=== PATIENT | male | born 1940 | race Caucasian/White ===

== ENCOUNTER → 2020-08-26 13:19 | Outpatient (ROUT) | payer MEDICARE, SELFPAY ==
[2020-08-26 13:34] LABS: Hematocrit 45.1 % (41-53); Hemoglobin 15.1 g/dL (13.5-17.5); Mean Corpuscular HGB Conc 33.6 % (30-36); Mean Corpuscular Hemoglobin 31.8 PG (26-34); Mean Corpuscular Volume 94.7 fL (80-100); Platelet Count 165 X10^3/uL (150-400); Red Blood Cell Count 4.76 X10^6/uL (4.5-5.9); Red Cell Distribution Width 12.7 % (11.6-14.8)
[2020-08-26 13:44] LABS: BUN Creatinine Ratio 22.2 (6-22); Blood Urea Nitrogen 18 mg/dL (9-20); Calcium 9.4 mg/dL (8.4-10.2); Carbon Dioxide 32 mmol/L (22-32); Chloride 104 mmol/L (98-107); Estimated Glomerular Filt Rate > 60.0 mL/min (>60); Glucose 96 mg/dL (80-110); HEMOLYSIS < 15 (0-50); Potassium 4.4 mmol/L (3.4-5.1); Sodium 139 mmol/L (137-145)
[2020-08-26 14:12] LABS: Prostate Specific Antigen 5.66 ng/mL (0.10-4.00)
== END ==
PROVIDERS: PCP Internal Medicine; Visit Provider Internal Medicine
DX: M77.11 Lateral epicondylitis, right elbow (principal); D63.8 Anemia in other chronic diseases classified elsewhere; I10 Essential (primary) hypertension; R97.20 Elevated prostate specific antigen [PSA]
CPT/HCPCS: 80048; 84153; 85027

== ENCOUNTER → 2020-09-10 19:06 | Outpatient (ROUT) | payer MEDICARE, SELFPAY ==
[2020-09-10 19:37] LABS: Alanine Aminotransferase 36 IU/L (<50); Albumin 4.1 g/dL (3.5-5.0); Albumin Globulin Ratio 1.8 (1.0-2.8); Alkaline Phosphatase 87 U/L (38-126); Aspartate Aminotransferase 38 IU/L (17-59); BUN Creatinine Ratio 22.1 (6-22); Bilirubin Total 0.7 mg/dL (0.2-1.3); Blood Urea Nitrogen 19 mg/dL (9-20); Calcium 9.4 mg/dL (8.4-10.2); Carbon Dioxide 28 mmol/L (22-32); Chloride 103 mmol/L (98-107); Cholesterol 149 mg/dL (140-199); Estimated Glomerular Filt Rate > 60.0 mL/min (>60); Globulin 2.3 g/dL (1.7-4.1); Glucose 81 mg/dL (80-110); HDL Cholesterol 58 mg/dL (40-60); HEMOLYSIS 22 (0-50); LDL Cholesterol Calculated 63 mg/dL (<100); Potassium 3.9 mmol/L (3.4-5.1); Sodium 138 mmol/L (137-145); Total Protein 6.4 g/dL (6.3-8.2); Triglycerides 141 mg/dL (35-150)
[2020-09-10 19:46] LABS: NT-proBNP (BNP-Adult 18+) 53 pg/mL (<450)
[2020-09-10 20:05] LABS: TSH w/ Reflex to FT4 2.44 uIU/mL (0.47-4.68)
[2020-09-10 20:26] LABS: Vitamin B12 863 pg/mL (239-931)
[2020-09-14 11:36] LABS: Intrinsic Factor Blocking Aby 1.3 AU/mL (0.0-1.1)
== END ==
PROVIDERS: PCP Internal Medicine; Visit Provider Internal Medicine
DX: R06.00 Dyspnea, unspecified (principal); E53.8 Deficiency of other specified B group vitamins; R01.1 Cardiac murmur, unspecified
CPT/HCPCS: 80053; 80061; 82607; 83880; 84443; 86340

== ENCOUNTER → 2020-09-16 10:12 | Outpatient (CLI) | payer MEDICARE, SELFPAY ==
--- NOTE | 2020-09-16 | DI.CT.S_ITS ---
PROCEDURE: CT ABDOMEN PELVIS W CON INDICATIONS: Left lower quadrant abdominal swelling, mass and l TECHNIQUE: After the administration of oral and intravenous contrast, 5 mm thick sections acquired from the diaphragms to the symphysis. 5 mm thick coronal and sagittal reformats were performed. For radiation dose reduction, the following was used: automated exposure control, adjustment of mA and/or kV according to patient size. COMPARISON: None. FINDINGS: Image quality: Excellent. ABDOMEN: Lung bases: Lung bases are clear. Heart size is mildly enlarged. Solid organs: Liver is normal in size and enhancement. A 9 mm low-density lesion in the right hepatic lobe at the dome is most likely a benign cyst. Gallbladder is surgically absent. Biliary system is non-dilated. Pancreas enhances normally. Spleen is normal in size and enhancement. No adrenal nodules. Kidneys are normal in size and enhancement, without hydronephrosis. Peritoneum and bowel: Small hiatal hernia. Multiple diverticula are seen in the colon without signs of acute diverticulitis. Normal appendix. No signs of bowel obstruction. Nodes and vessels: Aorta and inferior vena cava are normal in caliber. Moderate atherosclerotic calcifications are seen in the aorta. There is a andrea appearance of the small bowel mesentery with mildly prominent mesenteric lymph nodes along the superior mesenteric artery measuring up to 9 mm in short axis diameter. Miscellaneous: Small fat containing umbilical hernias are seen in the upper abdomen at the midline. PELVIS: Genitourinary: The prostate is enlarged. There is diffuse bladder wall thickening. A small diverticulum is seen at the anterior right aspect of the bladder. Miscellaneous: No inguinal hernias or adenopathy. Bones: No suspicious bony lesions. No vertebral body compression fractures. Multilevel degenerative changes are seen in the spine. IMPRESSION: 1. No acute abnormality is identified in the abdomen or pelvis. 2. Colonic diverticulosis without signs of acute diverticulitis. 3. Andrea appearance of the small bowel mesentery with mild prominence of the mesenteric lymph nodes is nonspecific and may be reactive versus related to mesenteric panniculitis or other etiologies. 4. Prostatomegaly with diffuse bladder wall thickening and trabeculation. 5. Small hiatal hernia. Dictated by: Ian Murphy M.D. on 09/16/2020 at 11:36 Approved by: Ian Murphy M.D. on 09/16/2020 at 11:49
== END ==
PROVIDERS: PCP Internal Medicine; Referring Provider Internal Medicine; Visit Provider Internal Medicine
DX: R19.04 Left lower quadrant abdominal swelling, mass and lump (principal); K76.9 Liver disease, unspecified; K57.90 Diverticulosis of intestine, part unspecified, without perforation or abscess without bleeding; K44.9 Diaphragmatic hernia without obstruction or gangrene; K42.9 Umbilical hernia without obstruction or gangrene; N32.89 Other specified disorders of bladder; N40.0 Benign prostatic hyperplasia without lower urinary tract symptoms; Z90.49 Acquired absence of other specified parts of digestive tract
CPT/HCPCS: 74177

== ENCOUNTER → 2020-09-24 15:25 | Outpatient (ROUT) | payer MEDICARE, SELFPAY ==
[2020-09-24 15:27] LABS: Bacteria Urine None Seen; RBC Urine None Seen (0-5/HPF); WBC Urine None Seen (0-5/HPF)
[2020-09-24 16:00] LABS: Appearance Urine UA CLEAR; Bilirubin Urine UA NEGATIVE (NEGATIVE); Color Urine UA YELLOW; Glucose Urine UA NEGATIVE (Negative); Ketones Urine UA NEGATIVE (NEGATIVE); Leukocyte Esterase Urine UA NEGATIVE (NEGATIVE); Nitrite Urine UA NEGATIVE (Negative); Occult Blood Urine UA NEGATIVE (Negative); Protein Urine UA NEGATIVE (Negative); Urobilinogen Urine UA 0.2 E.U./dL (0.2)
[2020-09-24 16:09] LABS: Urine Comments Microscopic Normal
== END ==
PROVIDERS: PCP Internal Medicine; Visit Provider Internal Medicine
DX: K57.92 Diverticulitis of intestine, part unspecified, without perforation or abscess without bleeding (principal)
CPT/HCPCS: 81001; 87086

== ENCOUNTER → 2020-10-06 15:57 | Outpatient (CLI) | payer MEDICARE, SELFPAY ==
--- NOTE | 2020-10-06 | DI.ECHO.S_ITS ---
[facility]---------+ [facility] +---------+ : : [address] : : : : [id number] : : : : Phone: [phone] Echocardiogram Report + + :Name: TENISHA INIGUEZ Study Date: 10/06/2020 Height: 69.5 in: :[facility] Weight: 190 lb : : Gender: Male BSA: 2.0 m2 : :: 1940 Age: 80 yrs BP: 156/88 mmHg: :Reason For Study: MURMUR : :Ordering Physician: BREANNE BRICE : :L Performed By: Ros Sauceda : :Referring: BREANNE BRICE : + + Interpretation Summary Left ventricular systolic function is normal with an estimated ejection fraction of 55 to 60% without focal wall motion abnormalities. Diastolic function is likely normal with probable normal filling pressures. The right ventricle appears normal. Right ventricular systolic pressure cannot be estimated but CVP is likely around 3 mmHg. The left atrium is mildly enlarged. The aortic valve is mildly calcified but opens well without evidence for aortic stenosis. There is no significant functional valvular abnormality. The ascending aorta is mildly enlarged. Procedure: A two-dimensional transthoracic echocardiogram with color flow and Doppler was performed. The study quality was technically adequate. There is no prior echocardiogram noted for this patient. The patient was in sinus bradycardia with heart rates between 55-66 bpm during the exam. Left Ventricle: The left ventricle appears normal in size, wall thickness, and systolic function without any focal wall motion abnormalities. The ejection fraction is estimated to be 55-60%. Diastolic parameters suggest probable normal left ventricular diastolic function and normal filling pressures. Right Ventricle: The right ventricle is normal in size and function. Atria: The left atrium is mildly dilated. Right atrial size is normal. There is no Doppler evidence for an interatrial shunt. Mitral Valve: The mitral valve is normal in structure and function. There is trace mitral regurgitation. Aortic Valve: The aortic valve is trileaflet. There is mild aortic valve sclerosis. The aortic valve is mildly calcified. The aortic valve opens well. There is no aortic valve stenosis. No aortic regurgitation is present. Tricuspid Valve: The tricuspid valve is normal in structure and function. There is trace tricuspid regurgitation. Pulmonary artery pressures cannot be estimated because of the lack of a measurable TR jet velocity but the IVC suggests a CVP of around 3 mmHg. Pulmonic Valve: The pulmonic valve is not well visualized. There is no pulmonic valvular regurgitation. There is no significant valvular heart disease. Great Vessels: The aortic root is normal size. The ascending aorta is mildly enlarged. The IVC is of normal diameter and collapses greater than 50% with a sniff. This suggests a low right atrial pressure of 3 mm Hg. Pericardium/ Pleura There is no pericardial effusion. There is no pleural effusion. MMode/2D Measurements & Calculations LVIDd: 5.4 cm LVOT diam: 2.1 cm LVIDs: 3.5 cm Ao root diam: 3.6 cm FS: 34.4 % asc Aorta Diam: 3.8 cm EPSS: 0.34 cm IVSd: 0.62 cm LVPWd: 0.76 cm LV swanson. diameter/BSA (cm/m^2): 2.7 LV sys. diameter/BSA (cm/m^2): 1.7 LA A2 area: 24.3 cm2 RA long axis: 4.9 cm LA A4 area: 23.1 cm2 RA area: 18.1 cm2 LA length (vol): 6.1 cm RA vol: 56.9 ml LA vol: 77.5 ml RA : 28.0 ml/m2 LA vol index: 38.1 ml/m2 IVC diam: 1.2 cm RVD1 (basal): 4.2 cm TAPSE: 2.4 cm Doppler Measurements & Calculations Ao V2 max: 186.1 cm/sec LVOT Max Mikael: 120.7 cm/sec Ao V2 mean: 127.3 cm/sec LV V1 max P.8 mmHg Ao max P.9 mmHg LV V1 VTI: 26.0 cm Ao mean P.3 mmHg JOSE ANGEL(I,D): 2.1 cm2 Ao V2 VTI: 44.6 cm JOSE ANGEL(V,D): 2.3 cm2 sev ratio: 0.58 JOSE ANGEL indexed to BSA (cm^2/m^2): 1.0 MV E max mikael: 86.6 cm/sec PA V2 max: 63.7 cm/sec MV A max mikael: 78.7 cm/sec PA V2 mean: 40.9 cm/sec MV E/A: 1.1 PA mean P.80 mmHg Med Peak E' Mikael: 8.4 cm/sec PA pr(Accel): 41.3 mmHg E/E' med: 10.3 Lat Peak E' Mikael: 9.8 cm/sec E/E' lat: 8.9 E/e' average: 9.6 MV dec time: 0.21 sec SVLVOT): 91.9 ml Reading Physician:05:39 PM
== END ==
PROVIDERS: PCP Internal Medicine; Referring Provider Internal Medicine; Visit Provider Internal Medicine
DX: R01.1 Cardiac murmur, unspecified (principal); I77.89 Other specified disorders of arteries and arterioles; R06.00 Dyspnea, unspecified
CPT/HCPCS: 93306

== ENCOUNTER → 2020-11-11 11:03 | Outpatient (CLI) | payer MEDICARE, SELFPAY ==
--- NOTE | 2020-11-11 | DI.US.S_ITS ---
PROCEDURE: US RENAL COMPLETE INDICATIONS: Recent CT scan demonstrated increased bladder trabeculation and a thickened, irregular bladder wall. Status post empiric antibiotics. Please evaluate genitourinary tract with ultrasound. Diverticulitis of intestine, part unspecified, wit TECHNIQUE: Real-time scanning was performed of the kidneys and bladder, with image documentation. COMPARISON: [facility], CT, CT ABDOMEN PELVIS W CON, 09/16/2020, 10:58. FINDINGS: Kidneys: Kidneys are normal in size. Right kidney measures 12.1 cm long; left kidney measures 11.5 cm long. Right renal cortical thickness is 1.6 cm; left renal cortical thickness is 1.6 cm. Renal cortical echotexture is normal. No hydronephrosis or nephrolithiasis. No suspicious solid mass lesions. Bladder: Pre-void bladder volume is 236 mL. Post-void residual is 87 mL. Pre-void images demonstrate no intraluminal masses or stones. No abnormal vascularity can be seen of the bladder wall. On pre-void images, both ureteral jets are noted with color Doppler interrogation. (Of note, ureteral jets may not be detectable in up to 25% of cases due to insufficient differences in specific gravity between ureteral and bladder urine). Miscellaneous: No free pelvic fluid. The prostate is enlarged, measuring 6.1 x 5.6 x 4.6 cm. IMPRESSION: Unremarkable bladder wall by ultrasound. Moderate postvoid residual, 87 cc. Enlarged prostate. Dictated by: Martin De Jesus M.D. on 11/11/2020 at 11:41 Approved by: Martin De Jesus M.D. on 11/11/2020 at 11:43
== END ==
PROVIDERS: PCP Internal Medicine; Referring Provider Internal Medicine; Visit Provider Internal Medicine
DX: K57.92 Diverticulitis of intestine, part unspecified, without perforation or abscess without bleeding (principal); N40.0 Benign prostatic hyperplasia without lower urinary tract symptoms
CPT/HCPCS: 76770

== ENCOUNTER → 2021-01-07 15:47 | Outpatient (ROUT) | payer OTHER, SELFPAY ==
[2021-01-07 16:56] LABS: Vitamin B12 266 pg/mL (239-931)
== END ==
PROVIDERS: PCP Internal Medicine; Visit Provider Internal Medicine
DX: D51.9 Vitamin B12 deficiency anemia, unspecified (principal); M1A.40X0 Other secondary chronic gout, unspecified site, without tophus (tophi)
CPT/HCPCS: 82607; 84550

== ENCOUNTER 2021-01-24 23:59 | Observation (INO) | payer OTHER, SELFPAY ==
[2021-01-25] VITALS (9 sets, daily range): BP systolic 118–166; BP diastolic 62–82; PULSE 56–80; RESP 15–20; TEMP 36.6–37.6; O2SAT 94–98; BMI 27.2
--- NOTE | 2021-01-25 | DI.RAD.S_ITS ---
PROCEDURE: XR GASTROGRAFIN CHALLENGE COMPARISON: None. INDICATIONS: SMALL BOWEL OBSTRUCTION FINDINGS: Dilated loops of small bowel noted in the right upper quadrant. Contrast material is identified in the colon. IMPRESSION: Dilated small-bowel loops in the right upper quadrant compatible small bowel obstruction. Contrast material identified in the colon indicating small bowel obstruction is partial. Dictated by: Emely Mckeon MD, PhD on 01/25/2021 at 14:32 Approved by: Emely Mckeon MD, PhD on 01/25/2021 at 14:33
--- NOTE | 2021-01-25 00:17 | ED.ABDPAIN ---
HPI - Abdominal Pain General Chief Complaint: Abdominal Pain Stated Complaint: severe abdominal pain/kidney pain Time Seen by Provider: 01/25/21 00:02 Source: patient Mode of arrival: Ambulatory Limitations: no limitations History of Present Illness HPI narrative: 81-year-old male nonsmoker with history of hypertension, hyperlipidemia and GERD presents with his in the chief complaint of a sudden onset mid epigastric pain that started about 5 hours ago. He states he is nauseated but denies any vomiting and pain is intense, 7/10. He states the pain is worse with motion and improves with rest. He denies any radiation of his pain. He is passing gas but denies any abnormal bowel movements. He denies any dysuria, frequency or urgency. He has had no fever or chills. He denies any exposure to persons known or under suspicion for COVID. MD complaint: abdominal pain Onset (ago): hour(s) Pain Consistency: constant Location: periumbilical Severity: severe Quality: cramping and aching Radiation: none Relieving factors: rest Exacerbating factors: movement Associated symptoms: nausea Related Data Home Medications Medication Instructions Recorded Confirmed amlodipine [Norvasc] #0 08/23/17 atorvastatin [Lipitor] #0 08/23/17 lisinopril #0 08/23/17 omeprazole #0 08/23/17 Review of Systems Constitutional Constitutional: Denies chills, Denies fatigue, Denies fever(s), Denies frequent falls, Denies lethargy and Denies weakness Eyes Eyes: Denies change in vision, Denies eye discharge, Denies irritation and Denies loss of vision ENT Ears, Nose, Mouth, and Throat: Denies change in voice, Denies dizziness, Denies neck pain, Denies sore throat and Denies throat swelling Cardiovascular Cardiovascular: Denies chest pain, Denies irregular heart rhythm, Denies lightheadedness, Denies palpitations, Denies dyspnea, Denies dyspnea on exertion and Denies orthopnea Respiratory Respiratory: Denies cough, Denies dyspnea, Denies dyspnea on exertion and Denies wheezing Gastrointestinal Gastrointestinal: Reports abdominal pain, Denies change in bowel habits, Denies diarrhea, Reports nausea and Denies vomiting Musculoskeletal Musculoskeletal: Denies neck pain and Denies numbness Integumentary/Breasts Skin/Breast: Denies pruritus, Denies erythema, Denies rash and Denies wounds Neurologic Neurologic: Denies behavioral changes, Denies confusion, Denies dizziness, Denies frequent falls, Denies loss of vision, Denies numbness and Denies weakness Psychiatric Psychiatric: Denies anxiety, Denies behavioral changes, Denies confusion, Denies depression, Denies homicidal ideation and Denies suicidal ideation Endocrine Endocrine: Denies fatigue, Denies flushing and Denies palpitations Hematologic/Lymphatic Hematologic/Lymphatic: Denies easy bruising Allergic/Immunologic Allergic/Immunologic: Denies urticaria, Denies throat swelling and Denies wheezing Patient History Smoking Status: Former smoker alcohol intake frequency: 0-2 drinks per day Substance Use Type: does not use Exam Narrative Exam Narrative: GENERAL: [81] year old patient appears stated age. Well-nourished, well-developed patient, in mild distress. HEAD: Atraumatic. Normocephalic. EYES: Pupils equal round and reactive. Extraocular motions intact. No scleral icterus. No injection or drainage. ENT: Nose without bleeding, purulent drainage. Throat without erythema, tonsillar hypertrophy or exudate. Airway patent. NECK: Trachea midline. Non tender CARDIOVASCULAR: Regular rate and rhythm without murmurs, gallops, or rubs. RESPIRATORY: Clear to auscultation. Breath sounds equal bilaterally. No wheezes, rales, or rhonchi. GASTROINTESTINAL: Abdomen soft, central abdominal pain, nondistended. Decreased bowel sounds EXTREMITIES: No edema or joint tenderness. BACK: Nontender without deformity or crepitance. No flank tenderness. NEURO: AOx3. SKIN: No rash or erythema of visible areas Initial Vital Signs Initial Vital Signs: Vital Signs Temperature 99.1 F 01/25/21 00:05 Pulse Rate 58 L 01/25/21 00:05 Respiratory Rate 20 01/25/21 00:05 Blood Pressure 166/78 H 01/25/21 00:05 Pulse Oximetry 98 01/25/21 00:05 Course Orders Ordered: ED Orders 01/25/21 00:15 Complete Blood Count AUTO DIFF Stat Comprehensive Metabolic Panel Stat Lipase Stat 01/25/21 00:18 CT abdomen pelvis w con Stat Acetaminophen (Acetaminophen 325 Mg Tablet) 650 mg PO Q6HR PRN PRN Reason: Pain, Mild (1-3) Heparin Sodium (Porcine) (Heparin 5,000 Unit/Ml Vial) 5,000 unit SUBCUT BID YANI Sodium Chloride (Normal Saline 0.9%) 1,000 mls @ 150 mls/hr IV CONT YANI Last Admin: 01/25/21 00:42 Dose: 150 mls/hr Documented by: GUADALUPE Morphine Sulfate (Morphine 2 Mg/Ml Inj) 2 mg IV Q4HR PRN PRN Reason: Pain, Moderate (4-6) Naloxone HCl (Naloxone 0.4 Mg/Ml Vial) 0.2 mg IV Q2MIN PRN PRN Reason: Opiate Reversal Ondansetron HCl (Ondansetron 4 Mg/2 Ml Inj) 4 mg IV Q4HR PRN PRN Reason: Nausea And Vomiting Oxycodone HCl (Oxycodone Ir 5 Mg Tablet) 5 mg PO Q6HR PRN PRN Reason: Pain, Moderate (4-6) Pantoprazole Sodium (Pantoprazole 40 Mg Vial) 40 mg IV DAILY YANI Discontinued Medications Hydromorphone HCl (Hydromorphone 0.5 Mg Inj) 0.5 mg IV NOW ONE Stop: 01/25/21 00:58 Last Admin: 01/25/21 01:01 Dose: 0.5 mg Documented by: PHAM Ondansetron HCl (Ondansetron 4 Mg/2 Ml Inj) 4 mg IV NOW ONE Stop: 01/25/21 00:18 Last Admin: 01/25/21 00:43 Dose: 4 mg Documented by: GUADALUPE Pantoprazole Sodium (Pantoprazole 40 Mg Vial) 40 mg IV NOW ONE Stop: 01/25/21 00:18 Last Admin: 01/25/21 00:43 Dose: 40 mg Documented by: GUADALUPE Consultations Consultation #1: Discussed with on-call surgery, Dr. Patterson, she is happy to accept the patient on her service and will write orders Vital Signs Vital signs: Vital Signs - 8 hr 01/25/21 00:05 Temperature 99.1 F Pulse Rate 58 L Respiratory Rate 20 Blood Pressure 166/78 H Pulse Oximetry 98 MDM - Abdominal Pain Lab Data Result diagrams: 01/25/21 00:15 01/25/21 00:15 Labs: Lab Results 01/25/21 01/25/21 Range/Units 00:15 00:15 WBC 6.3 (4.5-11.0) X10^3/uL RBC 4.73 (4.5-5.9) X10^6/uL Hgb 15.5 (13.5-17.5) g/dL Hct 44.0 (41-53) % MCV 93.2 (80-100) fL MCH 32.8 (26-34) PG MCHC 35.2 (30-36) % RDW 13.4 (11.6-14.8) % Plt Count 191 (150-400) X10^3/uL Neut % (Auto) 73.3 (50-75) % Lymph % (Auto) 15.6 L (25-40) % Bleckley % (Auto) 8.6 (3-14) % Eos % (Auto) 1.8 L (2-4) % Baso % (Auto) 0.7 (0-2) % Neut # (Auto) 4600 (1212-5604) /uL Lymph # (Auto) 1000 L (6272-6673) /uL Bleckley # (Auto) 500 (0-900) /uL Eos # (Auto) 100 (0-450) /uL Baso # (Auto) 0 (0-100) /uL Sodium 138 (137-145) mmol/L Potassium 3.7 (3.4-5.1) mmol/L Chloride 102 (98-107) mmol/L Carbon Dioxide 28 (22-32) mmol/L BUN 17 (9-20) mg/dL Creatinine 0.80 (0.66-1.25) mg/dL Estimated GFR > 60.0 (>60) mL/min BUN/Creatinine Ratio 21.3 (6-22) Glucose 105 (80-110) mg/dL Calcium 9.8 (8.4-10.2) mg/dL Total Bilirubin 1.0 (0.2-1.3) mg/dL AST 38 (17-59) IU/L ALT 32 (<50) IU/L Alkaline Phosphatase 90 (38-126) U/L Total Protein 7.0 (6.3-8.2) g/dL Albumin 4.4 (3.5-5.0) g/dL Globulin 2.6 (1.7-4.1) g/dL Albumin/Globulin Ratio 1.7 (1.0-2.8) Lipase 45 (23-300) U/L Imaging Data CT scan - abdomen/pelvis: Radiologist's Impression: Small-bowel obstruction with transition point in the mid abdomen Discharge Plan Departure Patient Disposition: Admitted as Observation Clinical Impression: Partial small bowel obstruction Admit Date/Time: 01/25/21 02:09 Admit Provider: Rhonda Patterson
--- NOTE | 2021-01-25 00:18 | DI.CT.S_ITS ---
PROCEDURE: CT ABDOMEN PELVIS W CON INDICATIONS: severe abdominal pain TECHNIQUE: After the administration of intravenous contrast, 5 mm thick sections acquired from the diaphragm to the symphysis. 5 mm coronal and sagittal reformats were acquired. For radiation dose reduction, the following was used: automated exposure control, adjustment of mA and/or kV according to patient size. COMPARISON: [facility], CT, CT ABDOMEN PELVIS W CON, 09/16/2020, 10:58. FINDINGS: Image quality: Excellent. ABDOMEN: Lung bases: Lung bases are clear. Heart size is normal. Solid organs: Liver is normal in size. Low attenuation hepatic foci are unchanged. Gallbladder has been removed. Biliary system is non dilated. Pancreas enhances normally. Spleen is normal in size and enhancement. No adrenal nodules. Kidneys demonstrate normal size and enhancement, without hydronephrosis. Peritoneum and bowel: Diverticula are present without inflammatory change. Bowel loops demonstrate dilated appearance of fluid filled small bowel in the mid/left hemiabdomen. Transition point is likely in the mid left abdomen. No free fluid or air. There is mild stranding in the mid abdominal mesentery with scattered subentimeter lymph nodes. Nodes and vessels: No retroperitoneal or mesenteric adenopathy by size criteria. Aorta and inferior vena cava are normal in size. Miscellaneous: No ventral hernias. PELVIS: Genitourinary: Bladder wall thickness is normal. Prostate is enlarged. Miscellaneous: Bilateral fat containing inguinal hernias. Bones: No suspicious bony lesions. No vertebral body compression fractures. IMPRESSION: 1. Dilated fluid filled loops of small bowel consistent with partial small bowel obstruction. 2. Mesenteric stranding with subcentimeter lymph nodes, relatively unchanged. This could be related to low level inflammation. Other etiologies including lymphoma cannot be excluded. 3-6 month interval followup. The above findings are concordant with preliminary report. Dictated by: Peg Esquivel M.D. on 01/25/2021 at 10:49 Approved by: Peg Esquivel M.D. on 01/25/2021 at 11:31
[2021-01-25 00:30] LABS: Add Manual Diff / Slide Review NO; Basophils Absolute Auto 0 /uL (0-100); Basophils Percent Auto 0.7 % (0-2); Eosinophils Absolute Auto 100 /uL (0-450); Eosinophils Percent Auto 1.8 % (2-4); Hemoglobin 15.5 g/dL (13.5-17.5); Lymphocytes Absolute Auto 1000 /uL (1100-4500); Lymphocytes Percent Auto 15.6 % (25-40); Mean Corpuscular HGB Conc 35.2 % (30-36); Mean Corpuscular Hemoglobin 32.8 PG (26-34); Mean Corpuscular Volume 93.2 fL (80-100); Monocytes Absolute Auto 500 /uL (0-900); Monocytes Percent Auto 8.6 % (3-14); Neutrophils Absolute Auto 4600 /uL (1500-7000); Neutrophils Percent Auto 73.3 % (50-75); Platelet Count 191 X10^3/uL (150-400); Red Blood Cell Count 4.73 X10^6/uL (4.5-5.9); Red Cell Distribution Width 13.4 % (11.6-14.8); White Blood Cell Count 6.3 X10^3/uL (4.5-11.0)
[2021-01-25 00:35] LABS: Alanine Aminotransferase 32 IU/L (<50); Albumin 4.4 g/dL (3.5-5.0); Albumin Globulin Ratio 1.7 (1.0-2.8); Alkaline Phosphatase 90 U/L (38-126); Aspartate Aminotransferase 38 IU/L (17-59); BUN Creatinine Ratio 21.3 (6-22); Blood Urea Nitrogen 17 mg/dL (9-20); Calcium 9.8 mg/dL (8.4-10.2); Carbon Dioxide 28 mmol/L (22-32); Chloride 102 mmol/L (98-107); Estimated Glomerular Filt Rate > 60.0 mL/min (>60); Globulin 2.6 g/dL (1.7-4.1); Glucose 105 mg/dL (80-110); HEMOLYSIS 23 (0-50); Lipase 45 U/L (23-300); Potassium 3.7 mmol/L (3.4-5.1); Sodium 138 mmol/L (137-145)
[2021-01-25] MEDS: SODIUM CHLORIDE 0.9% 1,000 ML 150 ML IV ×3 (00:42→18:53)
[2021-01-25] MEDS: PANTOPRAZOLE 40 MG VIAL IV ×2 (00:43→09:24)
[2021-01-25] MEDS: ONDANSETRON 4 MG/2 ML INJ IV ×2 (00:43→06:03)
[2021-01-25] MEDS: HYDROMORPHONE 0.5 MG INJ IV ×2 (01:01→02:59)
[2021-01-25 03:35] LABS: COVID19 - ADMIT (NP swab/PCR) Negative (Negative)
[2021-01-25] MEDS: MORPHINE 2 MG/ML INJ IV ×3 (03:46→10:42)
--- NOTE | 2021-01-25 04:25 | PC.ADMIT ---
[email or web address] Admission Note: The patient,Vivek Tian,81 y/o, was given written information regarding hospital policies, unit procedures and contact persons. Pt arrived on unit stable in good disposition with no apparent cardiovascular or respiratory distress. Able to ambulate from gurney to bed with no difficulty and did not need assistance. Pt AOx4, +CSM all four extremities. Able to make needs known. Pt reports cramping throbbing pain in abdomen that increases on palpation and is worse in LUQ. Hyperactive bowel sounds. Pt reports not passing gas at time of assessment and last BM 01/23/2021. Pt reports pain 04/14, given 2 mg morphine w/ successful reduction in pain. Pt has two lumps above umbilicus that are either a hernia or fatty tumor per pt report. 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 Pt does not know which one is which. Pt skin shows mild abrasions on legs from scratching. When asked, pt reported a bug infestation on his legs that he got from digging in the dirt approx 1 year ago. When pressed for more information, pt unable to tell this RN what kind of bug it was (denied scabies, chiggers, fleas, bedbugs; shows no characteristics typical to the aforementioned bites at time of assessment), only that it has been treated for the past year with creams and still itches but shows no signs of spreading either to other areas of body or other individuals. Pt unaware of current medications, and will bring list in AM. Patient's smoking status: Former smoker. Vital Signs - 8 hr 01/25/21 00:05 01/25/21 02:31 01/25/21 03:02 Temperature 99.1 F 98.4 F Pulse Rate 58 L 72 56 L Respiratory Rate 20 16 15 Blood Pressure 166/78 H 140/82 153/71 H Pulse Oximetry 98 95 97
[2021-01-25 06:48] LABS: BUN Creatinine Ratio 19.2 (6-22); Blood Urea Nitrogen 14 mg/dL (9-20); Carbon Dioxide 26 mmol/L (22-32); Chloride 103 mmol/L (98-107); Estimated Glomerular Filt Rate > 60.0 mL/min (>60); Glucose 122 mg/dL (80-110); HEMOLYSIS < 15 (0-50); Magnesium 1.9 mg/dL (1.6-2.3); Phosphorous 3.7 mg/dL (2.3-3.7); Potassium 3.9 mmol/L (3.4-5.1); Sodium 136 mmol/L (137-145)
--- NOTE | 2021-01-25 07:39 | PM.HP.1 ---
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 Based on outside hospital reports, this was an EGD and biopsy/duodenal polypectomy. He came into the ER during the night with c/o sudden onset mid epigastric pain that started about 5 hours prior. He says the pain was almost as bad as when his gall bladder became gangrenous several years ago. In the ER he c/o nausea and pain, but did not vomit. CT scan in the ER was c/w early SBO. This morning he was feeling better somewhat, in terms of pain. He reports he is passing flatus. He still feels very distended. ROS: He denies any dysuria, frequency or urgency. He denies fever or chills. He denies any exposure to persons known or under suspicion for COVID. Thirteen system review is otherwise negative other than as mentioned below and in HPI. GENERAL: Alert, oriented, mild distress due to abdominal discomfort. Appears stated age. Answers questions promptly and appropriately. Vital signs noted. HENT: Normocephalic, atraumatic. Hearing intact. EYES: Conjunctiva pink, sclera white, no periorbital swelling. CARDIOVASCULAR: Regular rate. No pedal edema. RESPIRATORY: Non-tachypneic, breathing comfortably on room air. GASTROINTESTINAL: Abdomen soft , distended, mild generalized tenderness palpation, well-healed upper midline incisional scar GENITALURINARY: No flank tenderness. MUSCULOSKELETAL: Equal tone and mass bilaterally. SKIN: Warm, dry, soft, appropriate color for ethnicity. No other lesions, rashes, or wounds. NEURO: Alert and Oriented X 3. No gross sensory deficits, or cognitive issues. PSYCH: Appropriate affect and mood. Patient History Family & Social History Social History: household members spouse Prior Living Arrangements House Safety & Behavioral: Feels Safe in Current Yes Environment Been Physically Hurt or No Threatened By a Person Suicidal Ideation Description None Suicide Plan Description No Plan Tobacco & Substance use: Smoking Status Former smoker alcohol intake current alcohol intake frequency 0-2 drinks per day Substance Use Type marijuana Meds Home Medications and Allergies Home Medications Medication Instructions Recorded Confirmed Type amlodipine [Norvasc] 10 mg PO DAILY #0 08/23/17 01/25/21 History atorvastatin [Lipitor] 20 mg PO DAILY #0 08/23/17 01/25/21 History lisinopril 20 mg PO DAILY #0 08/23/17 01/25/21 History omeprazole 20 mg PO DAILY #0 08/23/17 01/25/21 History Allergies Allergy/AdvReac Type Severity Reaction Status Date / Time No Known Drug Allergies Allergy Verified 01/25/21 03:40 Exam Vital Signs (past 8 hours): - 01/25/21 00:05 01/25/21 02:31 01/25/21 03:02 Temperature 99.1 F 98.4 F Pulse Rate 58 L 72 56 L Respiratory Rate 20 16 15 Blood Pressure 166/78 H 140/82 153/71 H Pulse Oximetry 98 95 97 01/25/21 05:00 01/25/21 06:05 Temperature 98.1 F Pulse Rate 62 Respiratory Rate 16 Blood Pressure 143/76 H Pulse Oximetry 96 95 Oxygen Delivery Method Room Air Oxygen Flow Rate [address] scan - abdomen: Radiologist's impression: Prelim read: early SBO, andrea mesentery (nonspecific) Labs Result Diagrams: 01/25/21 00:15 01/25/21 06:00 Labs: Laboratory Results - last 24 hr 01/25/21 01/25/21 01/25/21 00:15 00:15 02:35 WBC 6.3 RBC 4.73 Hgb 15.5 Hct 44.0 MCV 93.2 MCH 32.8 MCHC 35.2 RDW 13.4 Plt Count 191 Neut % (Auto) 73.3 Lymph % (Auto) 15.6 L [place] % (Auto) 8.6 Eos % (Auto) 1.8 L Baso % (Auto) 0.7 Neut # (Auto) 4600 Lymph # (Auto) 1000 L [place] # (Auto) 500 Eos # (Auto) 100 Baso # (Auto) 0 Sodium 138 Potassium 3.7 Chloride 102 Carbon Dioxide 28 BUN 17 Creatinine 0.80 Estimated GFR > 60.0 BUN/Creatinine Ratio 21.3 Glucose 105 Calcium 9.8 Phosphorus Magnesium Total Bilirubin 1.0 AST 38 ALT 32 Alkaline Phosphatase 90 Total Protein 7.0 Albumin 4.4 Globulin 2.6 Albumin/Globulin Ratio 1.7 Lipase 45 SARS-CoV-2 (PCR) Negative 01/25/21 06:00 WBC RBC Hgb Hct MCV MCH MCHC RDW Plt Count Neut % (Auto) Lymph % (Auto) [place] % (Auto) Eos % (Auto) Baso % (Auto) Neut # (Auto) Lymph # (Auto) [place] # (Auto) Eos # (Auto) Baso # (Auto) Sodium 136 L Potassium 3.9 Chloride 103 Carbon Dioxide 26 BUN 14 Creatinine 0.73 Estimated GFR > 60.0 BUN/Creatinine Ratio 19.2 Glucose 122 H Calcium 9.0 Phosphorus 3.7 Magnesium 1.9 Total Bilirubin AST ALT Alkaline Phosphatase Total Protein Albumin Globulin Albumin/Globulin Ratio Lipase SARS-CoV-2 (PCR) Assessment & Plan Assessment and plan (1) Partial small bowel obstruction: Status: Acute (2) GERD (gastroesophageal reflux disease): Status: Acute (3) Barretts esophagus: Status: Acute (4) History of abdominal surgery: Status: Acute Assessment & Plan narrative: This is a 81 yo man with history of abdominal surgery. He is not quite sure what surgery he had other than cholecystectomy. He felt that he had had a surgery for his gastric outlet, but based on the notes it appears that he only had an endoscopic polypectomy. His upper midline incision may be from his cholecystectomy. Based on his CT scan, and symptoms he has an early PSBO. Plan: IV fluid Home meds Protonix Clear liquid Gastrografin Small-bowel follow-through Pain med Antiemetic Ambulate COVID-19 COVID-19 status: Negative Result date/Date tested (Pos, Neg/Pending): 01/25/21 Time Spent With Patient Time with patient: Greater than 35 minutes Quality VTE Deep Vein Thrombosis/Pulmonary Embolism Present on Admission: No MIPS - Admit Advanced Care Plan / Current Medications Measures: #47 ? Advanced Care Plan Clinician documentation instruction: document at admission. [] I confirmed that the patient's Advance Care Plan is present, code status is documented, or surrogate decision maker is listed in the patient?s medical record. [SATISFIES [facility] PERFORMANCE] If Yes, Stop Here [] The patient?s Advance Care plan is not present because: (select) [[facility] PERFORMANCE EXCEPTION/EXCLUSION] [] I confirmed today that the patient does not wish or was not able to name a surrogate decision maker or provide an Advance Care Plan. [] Hospice care is currently being provided or has been provided this calendar year [] I did NOT confirm today the presence of an Advance Care Plan or surrogate decision maker documented within the patient's medical record. [DOES NOT SATISFY MIPS PERFORMANCE] #130 - Documentation of Current Medications in the Medical Record Clinician documentation instruction: use macro the first time you see a patient. [] I have utilized all available immediate resources to obtain, update, or review the patient?s current medications. [SATISFIES MIPS PERFORMANCE] If Yes, Stop Here [] The patient is not eligible for medication reconciliation; the patient is in an emergent medical situation where delaying treatment would jeopardize the patient?s health. [MIPS PERFORMANCE EXCEPTION/EXCLUSION] [] I did NOT confirm, update or review the patient's current list of medications today. [DOES NOT SATISFY MIPS PERFORMANCE] MIPS - CL Central Venous Catheter Placement Measure: #76 ? Prevention of Central Venous Catheter (CVC) ? Related Bloodstream Infection Clinician documentation instruction: use macro every time you place a central line. [] All elements of Maximal Sterile Barrier Technique, including hand hygiene, skin prep, and sterile ultrasound technique (if used) were followed. [SATISFIES MIPS PERFORMANCE] If Yes, Stop Here [] If ?No?, the medical reason all elements were NOT used for medical reason [] (ex. emergent condition). [] Maximal Sterile Barrier Technique was not followed, no reason provided [DOES NOT SATISFY MIPS PERFORMANCE] MIPS - DC Heart Failure Measures: #5 - Heart Failure (HF): Angiotensin-Converting Enzyme (DIAMOND) Inhibitor or Angiotensin Receptor Maribel (ARB) Therapy for Left Ventricular Systolic Dysfunction (LVSD) and #8 - Heart Failure (HF): Beta-Maribel Therapy for Left Ventricular Systolic Dysfunction (LVSD) Clinician documentation instruction: use macro at every CHF discharge. [] The patient has current or prior documentation of left ventricular ejection fraction (LVEF) less than 40%, or moderate or severely depressed left ventricular systolic function. Answer both: [SATISFIES MIPS PERFORMANCE] [] The patient was prescribed or already taking an Angiotensin-Converting Enzyme (DIAMOND) Inhibitor, or Angiotensin Receptor Maribel (ARB). [] The patient was prescribed or already taking a beta-maribel. If Yes to Both, Stop Here [] Patient not prescribed/taking: [MIPS PERFORMANCE EXCEPTION/EXCLUSION] [] DIAMOND or ARB for medical/patient/system reason(s) including [] (ex. allergy, intolerance, contraindication) [] Beta-maribel for medical/patient/system reason(s) including [] (ex. allergy, intolerance, contraindication) [] Patient not prescribed/taking: [DOES NOT SATISFY MIPS PERFORMANCE] [] DIAMOND or ARB, no reason given [] Beta-maribel, no reason given
[2021-01-25] MEDS: HEPARIN 5,000 UNIT/ML VIAL 5000 UNIT SUBCUT ×2 (09:24→21:33)
[2021-01-25] MEDS: SODIUM CHLORIDE 0.9% FLUSH 10 ML IV (10:42)
--- NOTE | 2021-01-25 13:21 | PC.NURSE ---
Day shift: Pt reports (at 1320) I'm feeling good and better. No pain right now. Pt also denies any nausea. Has water to drink and encouraged to drink/eat slowly and to report to RN if nausea or emesis return. Spouse in room. Call light in reach. Pt makes needs known proper. Uses urinal w/ good output. IV infusing per MAR.
--- NOTE | 2021-01-25 16:16 | CM.DANOTE ---
DCP ASSESSMENT: Patient is a pleasant 81 year-old male has a history of prior abdominal surgery a cholecystectomy and admitted for severe abdominal pain/kidney pain, with suspected early partial small bowel obstruction. PCP is Analy Merchant. Primary Payer is [facility]. DETAILER Student met with patient at bedside he is alert and oriented. Madeleine was present. Educated on role of social work in D/C planning. 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 Imaging was taken earlier today pending results. Patient and plan to D/C home when medically stable. will provide transportation. PLAN: Anticipate D/C home when medically stable. CM Team to continue to follow. AMOR Diaz MSW Student Discharge Planning/Care Management CM Discharge Assessment Start: 01/25/21 13:27 Freq: Status: Active Protocol: Document 01/25/21 13:28 AL (Rec: 01/25/21 13:30 AL [id number]) Discharge Planning Assessment Assigned Liquid Center Assembler AMOR Castillo Student Contact Information Madeleine Tian, # [phone] Advance Directives? No History Provided By Patient,Significant Other, Medical Record Has Patient been admitted in last 30 No days? Prior Living Arrangements House Household Members spouse Type of transporation used prior to Drives own vehicle admit Independent with ADL's Yes Is patient alert and oriented? Yes Barriers to Discharge No Discharge Plan Home Transportation Arrangement will provide transporation upon D/C Whiteboard Updated in Patient Room with Yes name and ext. # of Liquid Center Assembler Review Status In Process
[2021-01-25] MEDS: MELATONIN 3 MG TABLET 6 MG PO (21:34)
[2021-01-25] MEDS: ATORVASTATIN 20 MG TABLET PO (21:34)
--- NOTE | 2021-01-25 21:41 | PC.NURSE ---
A&Ox4. 95%RA. pt denies pain. pt had 2 loose stools for charlene shift. pt denies nausea. pt tolerated clear liquid diet. pt refused to ambulate in hallways. cms+. voiding without difficulty. IVF. call light in reach.
[2021-01-26] VITALS: BP 109/59; PULSE 71; RESP 18; TEMP 37.2; O2SAT 92
[2021-01-26] MEDS: SODIUM CHLORIDE 0.9% 1,000 ML 150 ML IV (03:23)
[2021-01-26 05:56] VITALS: BP 124/58; PULSE 54; RESP 17; TEMP 37.2; O2SAT 94
[2021-01-26 06:47] LABS: BUN Creatinine Ratio 13.5 (6-22); Blood Urea Nitrogen 10 mg/dL (9-20); Calcium 8.1 mg/dL (8.4-10.2); Carbon Dioxide 26 mmol/L (22-32); Chloride 108 mmol/L (98-107); Estimated Glomerular Filt Rate > 60.0 mL/min (>60); Glucose 97 mg/dL (80-110); HEMOLYSIS < 15 (0-50); Magnesium 1.8 mg/dL (1.6-2.3); Phosphorous 2.3 mg/dL (2.3-3.7); Potassium 3.4 mmol/L (3.4-5.1); Sodium 137 mmol/L (137-145)
--- NOTE | 2021-01-26 07:00 | DI.RAD.S_ITS ---
PROCEDURE: XR KUB INDICATIONS: passage of contrast TECHNIQUE: One view of the abdomen acquired. COMPARISON: [facility], [place], XR GASTROGRAFIN CHALLENGE, 01/25/2021, 11:51. FINDINGS: Surgical changes and devices: None. Bowel: Bowel gas pattern is normal. Contrast material scattered throughout the colon. No central contrast material identified in small bowel. Soft tissues: No suspicious abdominal calcifications. Visualized solid organ contours appear normal in size. Bones: No suspicious bony lesions. IMPRESSION: Contrast material scattered throughout the colon. Dictated by: Emely Mckeon MD, PhD on 01/26/2021 at 7:52 Approved by: Emely Mckeon MD, PhD on 01/26/2021 at 7:52
[2021-01-26 08:20] VITALS: BP 131/68; PULSE 67; RESP 16; TEMP 36.8; O2SAT 94
--- NOTE | 2021-01-26 08:48 | P.DS_ITS ---
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 Based on outside hospital reports, this was an EGD and biopsy/duodenal polypectomy. He came into the ER during the night with c/o sudden onset mid epigastric pain that started about 5 hours prior. He says the pain was almost as bad as when his gall bladder became gangrenous several years ago. In the ER he c/o nausea and pain, but did not vomit. CT scan in the ER was c/w early SBO. This morning he was feeling better somewhat, in terms of pain. He reports he is passing flatus. He still feels very distended. ROS: He denies any dysuria, frequency or urgency. He denies fever or chills. He denies any exposure to persons known or under suspicion for COVID. Thirteen system review is otherwise negative other than as mentioned below and in HPI. GENERAL: Alert, oriented, mild distress due to abdominal discomfort. Appears stated age. Answers questions promptly and appropriately. Vital signs noted. HENT: Normocephalic, atraumatic. Hearing intact. EYES: Conjunctiva pink, sclera white, no periorbital swelling. CARDIOVASCULAR: Regular rate. No pedal edema. RESPIRATORY: Non-tachypneic, breathing comfortably on room air. GASTROINTESTINAL: Abdomen soft , distended, mild generalized tenderness palpation, well-healed upper midline incisional scar GENITALURINARY: No flank tenderness. MUSCULOSKELETAL: Equal tone and mass bilaterally. SKIN: Warm, dry, soft, appropriate color for ethnicity. No other lesions, rashe s, or wounds. NEURO: Alert and Oriented X 3. No gross sensory deficits, or cognitive issues. PSYCH: Appropriate affect and mood. Discharge Providers Provider Date of admission: 01/25/21 02:09 Discharge Date: 01/26/21 Primary care physician: Cathy Chaves MD Consults: 01/25/21 02:31 Consult to Discharge Planning Routine Comment: Discharge provider: Rhonda Patterson MD Summary Hospital Course Discharge Diagnosis: Bowel obstruction, likely due to adhesions, resolved after Gastrografin challenge Hospital Course: Patient admitted with partial obstruction by CT scan and clinical findings. Improved with Gastrografin follow-through, and was then able to tolerate food and pass gas and stool. Status at Discharge Cognitive/behavioral status at discharge: at baseline, oriented Functional status at discharge: independent ambulation Overall status at discharge: patient is progressing back to baseline Time Spent with Patient Time spent: Greater than 30 minutes Exam Vital Signs (past 8 hours): - 01/26/21 05:56 01/26/21 08:20 Temperature 99.0 F 98.3 F Pulse Rate 54 L 67 Respiratory Rate 17 16 Blood Pressure 124/58 L 131/68 Pulse Oximetry 94 94 Oxygen Delivery Method Room Air Oxygen Flow Rate 0 Narrative Exam Narrative: GENERAL: Alert, comfortable. Appears stated age. Answers questions promptly and appropriately. Vital signs noted. HENT: Normocephalic, atraumatic. Hearing intact. EYES: Conjunctiva pink, sclera white, no periorbital swelling. CARDIOVASCULAR: Regular rate. No pedal edema. RESPIRATORY: Non-tachypneic, breathing comfortably on room air. GASTROINTESTINAL: Abdomen soft and non-distended GENITALURINARY: No flank tenderness. MUSCULOSKELETAL: Equal tone and mass bilaterally. SKIN: Warm, dry, soft, appropriate color for ethnicity. No other lesions, rashes, or wounds. NEURO: Alert and Oriented X 3. No gross sensory deficits, or cognitive issues. PSYCH: Appropriate affect and mood. Objective Imaging Abdominal x-ray: Radiologist's impression: [address] [id number] ReportSigned Patient: Vivek Tian#: [id number]: 2Acct:[id number]/Sex: 81 / MDate of Service: 01/26/21Loc: [id number] Number: [id number] Procedure: XR KUB Ordering Provider: Rhonda Patterson MD PROCEDURE: XR KUB INDICATIONS: passage of contrast TECHNIQUE: One view of the abdomen acquired. COMPARISON: [facility], [place]TTA, XR GASTROGRAFIN CHALLENGE, 01/25/2021, 11:51. FINDINGS: Surgical changes and devices: None. Bowel: Bowel gas pattern is normal. Contrast material scattered throughout the colon. No central contrast material identified in small bowel. Soft tissues: No suspicious abdominal calcifications. Visualized solid organ contours appear normal in size. Bones: No suspicious bony lesions. IMPRESSION: Contrast material scattered throughout the colon. Dictated by: Emely Mckeon MD, PhD on 01/26/2021 at 7:52 Approved by: Emely Mckeon MD, PhD on 01/26/2021 at 7:52 Labs Result Diagrams: 01/25/21 00:15 01/26/21 06:10 Labs: Laboratory Results - last 24 hr 01/26/21 06:10 Sodium 137 Potassium 3.4 Chloride 108 H Carbon Dioxide 26 BUN 10 Creatinine 0.74 Estimated GFR > 60.0 BUN/Creatinine Ratio 13.5 Glucose 97 Calcium 8.1 L Phosphorus 2.3 D Magnesium 1.8 PFSH Social History household members: spouse Smoking Status: Former smoker alcohol intake: current Discharge Assessment & Plan Assessment and Plan Assessment: Adhesive small-bowel obstruction, now resolved Plan of Treatment: Chew fibrous foods well, consider low residual diet, consider Metamucil for fiber, keep well hydrated, follow-up with your primary doctor. Come back in to the ER if new or worsening symptoms arise. Discharge Plan Discharge Plan Patient Disposition: Home Discharge orders & Medications Prescriptions: Continued omeprazole 10 MG capsule,delayed release(DR/EC) 20 mg PO DAILY Qty: 0 RF: 0 lisinopril 20 MG tablet 20 mg PO DAILY Qty: 0 RF: 0 atorvastatin [Lipitor] 10 MG tablet 20 mg PO DAILY Qty: 0 RF: 0 amlodipine [Norvasc] 5 MG tablet 10 mg PO DAILY Qty: 0 RF: 0 Follow up/Referrals: Cathy Chaves MD [Primary Care Provider] - Diet/Activity/Treatments Diet: Diet as Tolerated Diet comment: Avoid bulky fiber, chew well, use Metamucil in place of bulkier fiber Skin/Wound/Dressing Care Report to your healthcare provider any signs of infection, such as:: chills, fever, night sweats and increased pain Visit Report/Discharge Packet Instructions: Mechanical Bowel Obstruction, Low-Fiber/Low-Residue Diet Discharge Data Primary Care Provider: Cathy Chaves Attending Provider: Rhonda Patterson
--- NOTE | 2021-01-26 09:35 | PC.NURSE ---
Patient tolerated full liquid breakfast, reports good appetite. Denies abdominal pain, n/v. Reports having BM this morning and urinating without difficulty. Discharge order received, and patient eager to leave for MD tele appt. at home. IV dc'd intact. Tele dc'd. Discharge instructions and home care handouts reviewed, and patient states understanding and has no further questions or concerns at this time. Escorted out via wheelchair with all belongings by LYNNE to be discharged to home with his .
== END 2021-01-26 09:37 | disposition home or self-care (01) ==
LOC: ED 01-25 00:19 → AC 01-25 02:09
PROVIDERS: Admitting Provider Surgery; Emergency Provider Emergency Medicine; PCP Internal Medicine; Visit Provider Surgery
DX: K56.600 Partial intestinal obstruction, unspecified as to cause (principal); K21.9 Gastro-esophageal reflux disease without esophagitis; Z98.890 Other specified postprocedural states; I10 Essential (primary) hypertension; E78.5 Hyperlipidemia, unspecified; Z20.822 Contact with and (suspected) exposure to COVID-19
CPT/HCPCS: 36415; 74018; 74177; 80048; 80053; 83690; 83735; 84100; 85025; 87635; 94762; 96361; 96374; 96375; 96376; 99217; 99219; 99284; G0378; C9113; J1170; J1644; J2270; J2405; Q9967

== ENCOUNTER → 2021-02-09 10:06 | Outpatient (CLI) | payer OTHER, SELFPAY ==
[2021-01-25 03:05] VITALS: BMI 27.2
--- NOTE | 2021-02-09 10:19 | DIET.PN ---
Dietary Progress Note Assessment: 81y M attending RD appointment for help with diet after hospitalization for PSBO which is also helpful for his chronic health conditions (HLD, HTN, gout, is GF). Pt feels PSBO due to undercooked broccoli that he did not chew well. HT: 5'10 WT: 189# (down from 219#) Pt is somewhat concerned about his recent weight loss, has endoscopy and colonoscopy scheduled. Labs: Pt is concerned his HTN and HLD meds may be dosed too high as he has lost 30# recently c numbers in excellent range (EMR) Pt concerned his B12 dropped from 800+ to 200 in 4mo secondary to heartburn medication. Usual Day: wakes 6am has 4 cups black coffee sometimes c banana B: fresh hashbrowns (gold potatoes), sausage c eggs or breakfast tacos c corn tortillas always eats breakfast sometimes skips lunch because too busy at work D: string beans, peas, corn, often rotisserie chicken from [employer] makes several dishes out of it, likes beef (prime tenderloin, t-bone) stays away from high uric acid foods (no shellfish, asparagus, hasn't had flares for years) not much of a snacker, sometimes snacks of fruit eats a lot of bananas, grapes, strawberries, up to 7 bananas per day not much of a water drinker drinks 3 glasses red wine nightly, sometimes if can't sleep in middle of night will have gin and tonic about q3-4d. Nutrition Diagnosis: nutrition related knowledge deficit r/t dietary reccs for SBO aeb pt unsure what to eat to avoid SBO in the future, pt interested in diet for vitality taking into consideration hx of HTN, HLD, gout. Interventions: 1. Introduced pt to Cardiometabolic Food Plan at 1800 kcal level. Educated pt on all food categories c goals for amounts of each. Special consideration to legumes as source of soluble fiber, taking caution c nuts/seeds if noticeably bothering him, and non-starchy vegetables to ensure properly chopped and chewed for reduced risk of SBO. Pt will track his intake for the next few days to see where he is overconsuming and underconsuming to make changes to his overall diet. 2. Discussed cooking, chopping, and chewing food well while not distracted to best reduce risk for SBO in the future. 3. To support pt and spouse on finding new recipes, introduced pt to [employer] for meal plans and recipes created by dietitians. Pt will share c his and they will pick 2 recipes per week to try in order to increase variety in their diet. Monitoring/Evaluations: pt will f/u as needed
== END ==
PROVIDERS: PCP Internal Medicine; Referring Provider Internal Medicine; Visit Provider Internal Medicine
DX: K56.600 Partial intestinal obstruction, unspecified as to cause (principal); I10 Essential (primary) hypertension; E78.5 Hyperlipidemia, unspecified; M10.9 Gout, unspecified
CPT/HCPCS: 97802

== ENCOUNTER 2022-08-21 23:05 | Emergency (ER) | payer OTHER, SELFPAY ==
[2021-01-25 03:05] VITALS: BMI 27.2
[2022-08-21 23:10] VITALS: BP 147/72; PULSE 88; RESP 20; TEMP 37.1; O2SAT 95; BMI 27.1
--- NOTE | 2022-08-21 23:36 | ED.CHESTPAIN ---
HPI - Chest Pain General Chief Complaint: Chest Pain Stated Complaint: had chemo treatment and having hard time breathing Time Seen by Provider: 08/21/22 23:12 Source: patient Mode of arrival: Wheelchair Limitations: no limitations History of Present Illness HPI narrative: 82-year-old male former smoker with non-Hodgkin's lymphoma presents with his in the chief complaint of reproducible anterior chest pain and back pain which has been present for the past few days. He states when he moves he develops anterior chest pain or back pain that seems to improve with rest. He is not dizzy nor weak or lightheaded. Denies any fever or chills. He is had no shortness of breath, cough nor nausea or vomiting. He has non-Hodgkin's lymphoma managed by the [facility] and started his 1st round of R-CHOP last week. He states his symptoms started the day after his 5 day course of prednisone stopped. Related Data Home Medications Medication Instructions Recorded Confirmed amlodipine 5 mg tablet (Norvasc) 10 mg PO DAILY ##0 08/23/17 01/27/22 atorvastatin 10 mg tablet (Lipitor) 20 mg PO DAILY ##0 08/23/17 01/27/22 lisinopril 20 mg tablet 20 mg PO DAILY ##0 08/23/17 01/27/22 omeprazole 10 mg capsule,delayed 20 mg PO DAILY ##0 08/23/17 01/27/22 release Allergies Allergy/AdvReac Type Severity Reaction Status Date / Time No Known Drug Allergies Allergy Verified 01/27/22 12:46 Review of Systems Review of Systems Narrative: GENERAL: Denies chills, fatigue, malaise, fever, sweats. HEENT: Denies sinus pain, ear pain, sore throat, difficulty swallowing, dizziness. RESPIRATORY: See HPI CARDIOVASCULAR: See HPI GASTROINTESTINAL: Denies nausea, vomiting, abdominal pain, diarrhea, constipation, melena. : Denies dysuria, frequency, incontinence, hematuria, urinary retention. MUSCULOSKELETAL: denies weakness, joint pain, or bony pain SKIN: Denies rash, skin lesions, or other NEUROLOGIC: Denies weakness, headache, numbness, change in speech, confusion, seizures, incoordination. PSYCHIATRIC: No concerning psychosocial issues. 12 point review of systems is negative except for those stated above Patient History Social History household members: spouse Smoking Status: Former smoker alcohol intake: current Smoking Status: Former smoker alcohol intake frequency: 0-2 drinks per day Substance Use Type: marijuana Exam Narrative Exam Narrative: GENERAL: [82] year old patient appears stated age. Well-developed patient, in mild distress. HEAD: Atraumatic. Normocephalic. EYES: Pupils equal round and reactive. Extraocular motions intact. No scleral icterus. No injection or drainage. ENT: Nose without bleeding, purulent drainage. Throat without erythema, tonsillar hypertrophy or exudate. Airway patent. NECK: Trachea midline. Non tender CARDIOVASCULAR: Regular rate and rhythm without murmurs, gallops, or rubs. RESPIRATORY: Clear to auscultation. Breath sounds equal bilaterally. No wheezes, rales, or rhonchi. GASTROINTESTINAL: Abdomen soft, non-tender, nondistended. EXTREMITIES: No edema or joint tenderness. BACK: Nontender without deformity or crepitance. No flank tenderness. NEURO: AOx3. SKIN: No rash or erythema of visible areas Initial Vital Signs Initial Vital Signs: Vital Signs Temperature 98.8 F 08/21/22 23:10 Pulse Rate 88 08/21/22 23:10 Respiratory Rate 20 08/21/22 23:10 Blood Pressure 147/72 H 08/21/22 23:10 Pulse Oximetry 95 08/21/22 23:10 Oxygen Delivery Method 08/21/22 23:10 Course Orders Ordered: ED Orders 08/21/22 23:37 XR chest 1V Stat EKG-12 Lead Stat 08/21/22 23:45 Complete Blood Count AUTO DIFF Stat Comprehensive Metabolic Panel Stat Lipase Stat NT-proBNP (BNP-Adult 18+) Stat Procalcitonin Stat Prothrombin Time INR Stat Troponin & CK Cardiac Panel Stat 08/22/22 02:10 CT chest abd pel w con Stat Sodium Chloride (Normal Saline 0.9%) 1,000 mls @ 150 mls/hr IV CONT YANI Last Admin: 08/21/22 23:50 Dose: 150 mls/hr Documented By: KAMRAN Consultations Consultation #1: Discussed with on-call Oncology at the [facility] and [facility]. After lengthy discussion of patient's history and physical exam he sure the opinion that this is likely bone pain related to Neulasta. I discussed patient's concern in taking Tylenol or Tylenol containing products and was assured this is completely fine and without risk and he recommended Tylenol, Vicodin, Percocet or other. Vital Signs Vital signs: Vital Signs - 8 hr 08/21/22 23:10 08/21/22 23:49 08/21/22 23:50 Temperature 98.8 F Pulse Rate 88 Respiratory Rate 20 Blood Pressure 147/72 H 156/69 H 145/77 H Pulse Oximetry 95 Oxygen Delivery Method Room Air MDM - Chest Pain Lab Data Result diagrams: 08/21/22 23:45 08/21/22 23:45 Labs: Lab Results 08/21/22 08/21/22 08/21/22 Range/Units 23:45 23:45 23:45 WBC 3.1 L (4.5-11.0) X10^3/uL RBC 4.21 L (4.5-5.9) X10^6/uL Hgb 13.3 L (13.5-17.5) g/dL Hct 38.6 L (41-53) % MCV 91.7 (80-100) fL MCH 31.7 (26-34) PG MCHC 34.6 (30-36) % RDW 13.0 (11.6-14.8) % Plt Count 120 L (150-400) X10^3/uL Neut % (Auto) Not Reportable Lymph % (Auto) Not Reportable [place] % (Auto) Not Reportable Eos % (Auto) Not Reportable Baso % (Auto) Not Reportable Lymph # (Auto) Not Reportable [place] # (Auto) Not Reportable Baso # (Auto) Not Reportable Total Counted 100 Seg Neutrophils % 46.0 (38-70) % Band Neutrophils % 10.0 H (3-7) % Lymphocytes % (Manual) 30.0 (25-45) % Atypical Lymphs % 1.0 H ( - 0) % Monocytes % (Manual) 9.0 (2-11) % Eosinophils % (Manual) 4.0 (2-4) % Neutrophils # (Manual) 1736 L (0109-9901) /uL RBC Morphology Normal morphology PT 11.8 (10.1-12.7) SECONDS INR 1.0 (0.9-1.3) Sodium (137-145) mmol/L Potassium (3.4-5.1) mmol/L Chloride (98-107) mmol/L Carbon Dioxide (22-32) mmol/L BUN (9-20) mg/dL Creatinine (0.66-1.25) mg/dL Estimated GFR (>60) mL/min BUN/Creatinine Ratio (6-22) Glucose (80-110) mg/dL Calcium (8.4-10.2) mg/dL Total Bilirubin (0.2-1.3) mg/dL AST (17-59) IU/L ALT (<50) IU/L Alkaline Phosphatase (38-126) U/L Total Creatine Kinase (55-170) U/L CK-MB (CK-2) CK-MB (CK-2) Rel Index Troponin I (0.01-0.034) ng/mL NT-Pro-B Natriuret Pep (<450) pg/mL Total Protein (6.3-8.2) g/dL Albumin (3.5-5.0) g/dL Globulin (1.7-4.1) g/dL Albumin/Globulin Ratio (1.0-2.8) Lipase (23-300) U/L Procalcitonin 0.16 (<0.5) ng/mL 08/21/22 Range/Units 23:45 WBC (4.5-11.0) X10^3/uL RBC (4.5-5.9) X10^6/uL Hgb (13.5-17.5) g/dL Hct (41-53) % MCV (80-100) fL MCH (26-34) PG MCHC (30-36) % RDW (11.6-14.8) % Plt Count (150-400) X10^3/uL Neut % (Auto) Lymph % (Auto) [place] % (Auto) Eos % (Auto) Baso % (Auto) Lymph # (Auto) [place] # (Auto) Baso # (Auto) Total Counted Seg Neutrophils % (38-70) % Band Neutrophils % (3-7) % Lymphocytes % (Manual) (25-45) % Atypical Lymphs % ( - 0) % Monocytes % (Manual) (2-11) % Eosinophils % (Manual) (2-4) % Neutrophils # (Manual) (8807-6559) /uL RBC Morphology PT (10.1-12.7) SECONDS INR (0.9-1.3) Sodium 134 L (137-145) mmol/L Potassium 3.9 (3.4-5.1) mmol/L Chloride 99 (98-107) mmol/L Carbon Dioxide 29 (22-32) mmol/L BUN 16 (9-20) mg/dL Creatinine 0.77 (0.66-1.25) mg/dL Estimated GFR > 60 (>60) mL/min BUN/Creatinine Ratio 20.8 (6-22) Glucose 109 (80-110) mg/dL Calcium 8.6 (8.4-10.2) mg/dL Total Bilirubin 0.5 (0.2-1.3) mg/dL AST 25 (17-59) IU/L ALT 47 (<50) IU/L Alkaline Phosphatase 103 (38-126) U/L Total Creatine Kinase 32 L (55-170) U/L CK-MB (CK-2) TNP CK-MB (CK-2) Rel Index TNP Troponin I < 0.012 (0.01-0.034) ng/mL NT-Pro-B Natriuret Pep 85 (<450) pg/mL Total Protein 5.9 L (6.3-8.2) g/dL Albumin 3.5 (3.5-5.0) g/dL Globulin 2.4 (1.7-4.1) g/dL Albumin/Globulin Ratio 1.5 (1.0-2.8) Lipase 60 (23-300) U/L Procalcitonin (<0.5) ng/mL Imaging Data CT scan - chest: Radiologist's Impression: No acute infiltrate, pulmonary edema or lung lesion. Mild right middle and lower lobe dependent atelectasis similar to prior study. Port-A-Cath on right side is in appropriate position. No acute abdominal abnormality identified. Mesenteric root lymph nodes and adjacent fat attenuation have improved versus prior study. Otherwise chronic changes only MDM Narrative Medical decision making narrative: Patient with reassuring history and physical exam and reproducible musculoskeletal type chest and back pain most likely related to Neulasta, though other diagnoses such as myocardial infarction, pneumonia, pulmonary embolism and others considered but thought unlikely given history, physical exam, labs, imaging, EKGs and other. Patient is given extensive return precautions and questions have been answered to his apparent satisfaction Discharge Plan Departure Patient Disposition: Home Clinical Impression: Acute chest wall pain, Bone pain Instructions: DI for Atypical Chest Pain Activity Restrictions/Additional Instructions: *You have been diagnosed with [chest wall and back pain, most likely related to Neulasta. As we discussed your history and physical exam are reassuring and there is no evidence of heart attack, blood clot or other significant abnormality that would require specific or immediate intervention.] *What to do: *Please continue to take your regular medications as directed. *Please follow up with your primary care provider in 2-3 days, call for an appointment. Let them know you were seen in the Emergency Department and that we ask that you be seen in follow up. We will electronically transmit a record of today's note if your PCP is in our system * per my discussion with your oncology group at the [facility] and [facility] a Tylenol and Tylenol containing products are okay for you to use to control this type of pain *Return to Emergency Department if you should have any new, worsening or concerning symptoms, such as [fever greater than 101 F, shaking chills, worsening pain, persistent vomiting or other bothersome symptoms] Prescriptions: No Action omeprazole 10 MG capsule,delayed release(DR/EC) 20 mg PO DAILY Qty: 0 lisinopril 20 MG tablet 20 mg PO DAILY Qty: 0 atorvastatin [Lipitor] 10 MG tablet 20 mg PO DAILY Qty: 0 amlodipine [Norvasc] 5 MG tablet 10 mg PO DAILY Qty: 0 Referrals: Miscellaneous,Doctor, MD [Primary Care Provider] -
--- NOTE | 2022-08-21 23:37 | DI.RAD.S_ITS ---
PROCEDURE: XR CHEST 1V INDICATIONS: chest pain TECHNIQUE: One view of the chest was acquired. COMPARISON: [facility], , CHEST 2 VIEW, 07/23/2015, 11:44. FINDINGS: Surgical changes and devices: Right chest wall Port-A-Cath tip is in SVC. Lungs and pleura: Lungs are clear. No pleural effusions or pneumothorax. Mediastinum: Mediastinal contours appear normal. Heart size is normal. Bones and chest wall: No suspicious bony lesions. Overlying soft tissues appear unremarkable. IMPRESSION: No acute cardiopulmonary pathology. Dictated by: Manoj Francis M.D. on 08/22/2022 at 0:40 Approved by: Manoj Francis M.D. on 08/22/2022 at 0:41
[2022-08-21 23:49] VITALS: BP 156/69
[2022-08-21 23:50] VITALS: BP 145/77
[2022-08-21] MEDS: SODIUM CHLORIDE 0.9% 1,000 ML 150 ML IV (23:50)
--- NOTE | 2022-08-21 23:55 | PC.NURSE ---
2346 Power port accessed. Patient tolerated well. Blood return noted. Labs drawn off of port.
[2022-08-21 23:59] LABS: Prothrombin Time 11.8 SECONDS (10.1-12.7)
[2022-08-22 00:02] LABS: Add Manual Diff / Slide Review YES; Hematocrit 38.6 % (41-53); Hemoglobin 13.3 g/dL (13.5-17.5); Mean Corpuscular HGB Conc 34.6 % (30-36); Mean Corpuscular Hemoglobin 31.7 PG (26-34); Mean Corpuscular Volume 91.7 fL (80-100); Platelet Count 120 X10^3/uL (150-400); Red Blood Cell Count 4.21 X10^6/uL (4.5-5.9); White Blood Cell Count 3.1 X10^3/uL (4.5-11.0)
[2022-08-22 00:04] LABS: Alanine Aminotransferase 47 IU/L (<50); Albumin 3.5 g/dL (3.5-5.0); Albumin Globulin Ratio 1.5 (1.0-2.8); Alkaline Phosphatase 103 U/L (38-126); Aspartate Aminotransferase 25 IU/L (17-59); BUN Creatinine Ratio 20.8 (6-22); Bilirubin Total 0.5 mg/dL (0.2-1.3); Blood Urea Nitrogen 16 mg/dL (9-20); Calcium 8.6 mg/dL (8.4-10.2); Carbon Dioxide 29 mmol/L (22-32); Chloride 99 mmol/L (98-107); Creatine Kinase 32 U/L (55-170); Estimated Glomerular Filt Rate > 60 mL/min (>60); Globulin 2.4 g/dL (1.7-4.1); Glucose 109 mg/dL (80-110); HEMOLYSIS 17 (0-50); Lipase 60 U/L (23-300); Potassium 3.9 mmol/L (3.4-5.1); Sodium 134 mmol/L (137-145); Total Protein 5.9 g/dL (6.3-8.2)
[2022-08-22 00:16] LABS: NT-proBNP (BNP-Adult 18+) 85 pg/mL (<450); Neutrophils Absolute Manual 1736 /uL (3000-5900); RBC Morphology Normal Morphology; Total Cells Counted 100; Troponin I < 0.012 ng/mL (0.01-0.034)
[2022-08-22 00:22] LABS: Procalcitonin 0.16 ng/mL (<0.5)
--- NOTE | 2022-08-22 02:10 | DI.CT.S_ITS ---
PROCEDURE: CT CHEST ABD PEL W CON INDICATIONS: chest/back pain after first RCHOP TECHNIQUE: After the administration of intravenous contrast, axial sections acquired from the supraclavicular neck to the pubic symphysis. Coronal and sagittal reformats were performed. For radiation dose reduction, the following was used: automated exposure control, adjustment of mA and/or kV according to patient size. COMPARISON: [facility], CT, CT ABDOMEN PELVIS W CON, 09/16/2020, 10:58. FINDINGS: Image quality: Excellent. CHEST: Lower Neck: No enlarged lymph nodes. Thyroid: Within normal limits. Axillae: No enlarged lymph nodes. Chest Wall: Unremarkable. Lungs and Airways: No consolidation or suspicious nodules. Right basilar atelectasis. Pleura: No pneumothorax or pleural effusions. Heart: Heart size is normal. No pericardial effusion. Mild coronary artery calcification. Thoracic Vessels: The aorta and pulmonary arteries demonstrate normal size. Mediastinum and [place]: No enlarged lymph nodes. Esophagus: No wall thickening. Small hiatal hernia. ABDOMEN: Liver: Normal size. Mild hepatic steatosis. There is a 0.9 cm low-density nodule in the right hepatic lobe, most likely a cyst. Gallbladder: Surgically absent. Biliary ducts: Unremarkable. Pancreas: Unremarkable. Spleen: Unremarkable. Adrenal Glands: Unremarkable. Kidneys and Ureters: Unremarkable. Stomach and Bowel: Stomach, small bowel loops, and colon are normal in caliber. Diverticulosis. No acute diverticulitis. Peritoneum: There is mesenteric stranding and numerous subcentimeter mesenteric lymph nodes. No abnormal intraperitoneal fluid. No free air. Ventral Wall: There is a small fat containing umbilical hernia. Abdominal Nodes: No retroperitoneal or mesenteric adenopathy by size criteria. Vessels: Aorta and inferior vena cava are normal in size. Severe atherosclerosis. PELVIS: Pelvic Organs: Prostate is enlarged.. Bladder: Unremarkable. Pelvic Nodes: No enlarged lymph nodes. Miscellaneous: No inguinal hernias are seen. Bones: Unremarkable. Degenerative changes in thoracic and lumbar spine. IMPRESSION: 1. No acute abnormalities identified in thorax, abdomen or pelvis. 2. Mesenteric stranding and numerous subcentimeter mesenteric lymph nodes. 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 3. Hepatic steatosis. 4. Enlarged prostate No significant discrepancy with the rn shift mgr radiology preliminary report. Dictated by: Jeri Bennett M.D. on 08/22/2022 at 8:07 Approved by: Jeri Bennett M.D. on 08/22/2022 at 8:15
[2022-08-22] MEDS: ACETAMINOPHEN 325 MG TABLET 975 MG PO (05:18)
[2022-08-22 05:26] VITALS: BP 132/77; PULSE 79; RESP 16; O2SAT 100
--- NOTE | 2022-08-22 05:26 | PC.NURSE ---
Patient port de accessed- flushed with 10cc NS and then locked with heparin.
== END 2022-08-22 05:32 | disposition home or self-care (01) ==
PROVIDERS: Emergency Provider Emergency Medicine
DX: R07.89 Other chest pain (principal); M54.9 Dorsalgia, unspecified; M89.8X9 Other specified disorders of bone, unspecified site; T45.8X5A Adverse effect of other primarily systemic and hematological agents, initial encounter
CPT/HCPCS: 71045; 71260; 74177; 80053; 82550; 82553; 83690; 83880; 84145; 84484; 85007; 85025; 85610; 93005; 93010; 96360; 96361; 99284; J1642; Q9967

== ENCOUNTER 2022-09-11 19:06 | Emergency (ER) | payer OTHER, SELFPAY ==
[2021-01-25 03:05] VITALS: BMI 27.2
[2022-09-11] VITALS (19 sets, daily range): BP systolic 121–177; BP diastolic 62–86; PULSE 61–91; RESP 14–44; TEMP 36.6; O2SAT 84–99; BMI 26.7
--- NOTE | 2022-09-11 19:22 | DI.RAD.S_ITS ---
PROCEDURE: XR CHEST 1V INDICATIONS: chest pain TECHNIQUE: One view of the chest was acquired. COMPARISON: [facility], CR, XR CHEST 1V, 08/22/2022, 0:26. FINDINGS: Surgical changes and devices: Right internal jugular Port-A-Cath appears stable in position. Lungs and pleura: Lungs are clear. Elevation of the right hemidiaphragm redemonstrated. No pleural effusions or pneumothorax. Mediastinum: Mediastinal contours appear normal. Heart size is normal. Bones and chest wall: No suspicious bony lesions. Overlying soft tissues appear unremarkable. IMPRESSION: 1. No acute cardiopulmonary disease. Dictated by: Дмитрий Burnette M.D. on 09/11/2022 at 21:38 Approved by: Дмитрий Burnette M.D. on 09/11/2022 at 21:38
--- NOTE | 2022-09-11 19:52 | ED_ITS ---
HPI - SOB/Dyspnea General Chief Complaint: Toxicology Problem Stated Complaint: Carbon monoxide poisoning Time Seen by Provider: 09/11/22 19:19 Source: patient and family Mode of arrival: Ambulatory Limitations: no limitations History of Present Illness HPI Narrative: Patient is a 82-year-old male history of hypertension non-Hodgkin's lymphoma, presenting today with concern for carbon monoxide poisoning. Both he and his state that they heard alarm going off last night they thought it might be a battery issue they changed all the batteries today may have a propane tank. They have a free standing propane tank for the fireplace. Patient is at all day by the fireplace started feeling weak. was in in audit house not sitting there. When he arrived the carbon monoxide detector showed 27-32. He says he generally feels weak lethargic from his chemo in his cancer difficult to tell but he was definitely worse. has no symptoms. He was having some mild chest pain. He is followed by [facility] for his cancer treatment. Patient was seen evaluated here few weeks ago for some chest pain and bone pain and discharged home. Related Data Home Medications Medication Instructions Recorded Confirmed amlodipine 5 mg tablet (Norvasc) 10 mg PO DAILY ##0 08/23/17 01/27/22 atorvastatin 10 mg tablet (Lipitor) 20 mg PO DAILY ##0 08/23/17 01/27/22 lisinopril 20 mg tablet 20 mg PO DAILY ##0 08/23/17 01/27/22 omeprazole 10 mg capsule,delayed 20 mg PO DAILY ##0 08/23/17 01/27/22 release Allergies Allergy/AdvReac Type Severity Reaction Status Date / Time No Known Drug Allergies Allergy Verified 09/11/22 19:27 Review of Systems Review of Systems Narrative: GENERAL: See HPI HEENT: Denies sinus pain, ear pain, sore throat, difficulty swallowing, neck pain RESPIRATORY: Denies dyspnea, cough, wheezing, hemoptysis, sputum. CARDIOVASCULAR: See HPI GASTROINTESTINAL: Denies nausea, vomiting, abdominal pain, diarrhea, constipation, melena. : Denies dysuria, frequency, incontinence, hematuria, urinary retention, flank pain. MUSCULOSKELETAL: Denies weakness, joint pain, or bony pain SKIN: No rash, no erythema, no pruritus NEUROLOGIC: Denies weakness, dizziness, headache, numbness, change in speech, confusion PSYCHIATRIC: No concerning psychosocial issues. 12 point review of systems is negative except for those stated above and HPI Patient History Social History household members: spouse Smoking Status: Former smoker alcohol intake: current Smoking Status: Former smoker alcohol intake frequency: 0-2 drinks per day Substance Use Type: marijuana Exam Initial Vital Signs Initial Vital Signs: Vital Signs Pulse Rate 76 09/11/22 19:22 Respiratory Rate 15 09/11/22 19:22 Pulse Oximetry 84 L 09/11/22 19:22 GENERAL: Alert pleasant 82-year-old male HEENT: Head atraumatic,EOMI, pupils reactive, face symmetric, moist mucous membranes CARDIOVASCULAR: Regular rate and rhythm without murmurs, rubs or gallops. RESPIRATORY: Breath sounds equal bilaterally, no wheezes rales or rhonchi. ABDOMEN: Soft, nontender. Normoactive bowel sounds all 4 quadrants. No guarding or rebound. EXTREMITIES: Normal range of motion, no clubbing or edema. Neurovascularly intact NEUROLOGICAL: Alert and oriented x4.Normal gait and speech. SKIN: Warm, dry, no laceration, no petechiae, no rashes or lesions. Course Orders Ordered: ED Orders 09/11/22 19:22 XR chest 1V Stat EKG-12 Lead Stat 09/11/22 19:25 Complete Blood Count AUTO DIFF Stat Comprehensive Metabolic Panel Stat Lipase Stat Magnesium Stat Troponin & CK Cardiac Panel Stat 09/11/22 19:39 COVID19 -Nasal RAPID/Pre-Proc Stat Vital Signs Vital signs: Vital Signs - 8 hr 09/11/22 19:27 09/11/22 19:22 09/11/22 19:30 Temperature 97.8 F Pulse Rate 75 76 91 H Respiratory Rate 14 15 44 H Blood Pressure 177/86 H Pulse Oximetry 97 84 L 96 Oxygen Delivery Method Room Air Oxygen Flow Rate 15 09/11/22 19:42 09/11/22 19:42 09/11/22 19:45 Temperature Pulse Rate 75 75 Respiratory Rate 33 H 31 H Blood Pressure 148/77 H Pulse Oximetry 94 95 Oxygen Delivery Method Non -Rebreather Non -Rebreather Oxygen Flow Rate 15 15 09/11/22 19:45 09/11/22 20:00 09/11/22 20:00 Temperature Pulse Rate 80 Respiratory Rate 36 H Blood Pressure 140/69 147/72 H Pulse Oximetry 98 Oxygen Delivery Method Oxygen Flow Rate 09/11/22 20:15 09/11/22 20:15 09/11/22 20:30 Temperature Pulse Rate 78 Respiratory Rate 31 H Blood Pressure 127/65 121/62 Pulse Oximetry 98 Oxygen Delivery Method Oxygen Flow Rate 09/11/22 20:30 09/11/22 20:45 09/11/22 20:45 Temperature Pulse Rate 70 68 Respiratory Rate 29 H 23 Blood Pressure 134/74 Pulse Oximetry 98 97 Oxygen Delivery Method Oxygen Flow Rate 09/11/22 21:00 09/11/22 21:00 09/11/22 21:15 Temperature Pulse Rate 67 Respiratory Rate 23 Blood Pressure 139/74 156/75 H Pulse Oximetry 99 Oxygen Delivery Method Oxygen Flow Rate 09/11/22 21:15 09/11/22 21:30 09/11/22 21:30 Temperature Pulse Rate 75 71 Respiratory Rate 34 H 31 H Blood Pressure 141/76 H Pulse Oximetry 93 93 Oxygen Delivery Method Room Air Oxygen Flow Rate 09/11/22 21:45 09/11/22 21:45 09/11/22 22:00 Temperature Pulse Rate 69 Respiratory Rate 27 H Blood Pressure 138/72 147/80 H Pulse Oximetry 93 Oxygen Delivery Method Oxygen Flow Rate 09/11/22 22:00 09/11/22 22:15 09/11/22 22:15 Temperature Pulse Rate 71 66 Respiratory Rate 29 H 22 Blood Pressure 148/82 H Pulse Oximetry 95 93 Oxygen Delivery Method Oxygen Flow Rate 09/11/22 22:30 09/11/22 22:30 09/11/22 22:45 Temperature Pulse Rate 63 Respiratory Rate 19 Blood Pressure 158/78 H 142/65 H Pulse Oximetry 96 Oxygen Delivery Method Oxygen Flow Rate 09/11/22 22:45 09/11/22 23:00 09/11/22 23:00 Temperature Pulse Rate 66 61 Respiratory Rate 29 H 20 Blood Pressure 148/67 H Pulse Oximetry 95 94 Oxygen Delivery Method Oxygen Flow Rate 09/11/22 23:15 Temperature Pulse Rate 86 Respiratory Rate 35 H Blood Pressure Pulse Oximetry 96 Oxygen Delivery Method Oxygen Flow Rate MDM - SOB/Dyspnea Lab Data Result diagrams: 09/11/22 19:25 09/11/22 19:25 Labs: Lab Results 09/11/22 09/11/22 09/11/22 Range/Units 19:25 19:25 19:39 WBC 4.1 L (4.5-11.0) X10^3/uL RBC 4.02 L (4.5-5.9) X10^6/uL Hgb 13.0 L (13.5-17.5) g/dL Hct 37.6 L (41-53) % MCV 93.4 (80-100) fL MCH 32.2 (26-34) PG MCHC 34.5 (30-36) % RDW 13.9 (11.6-14.8) % Plt Count 188 (150-400) X10^3/uL Neut % (Auto) Not Reportable Lymph % (Auto) Not Reportable [place] % (Auto) Not Reportable Eos % (Auto) Not Reportable Baso % (Auto) Not Reportable Lymph # (Auto) Not Reportable [place] # (Auto) Not Reportable Baso # (Auto) Not Reportable Total Counted 100 Seg Neutrophils % 48.0 (38-70) % Band Neutrophils % 2.0 L (3-7) % Lymphocytes % (Manual) 30.0 (25-45) % Atypical Lymphs % 1.0 H ( - 0) % Monocytes % (Manual) 11.0 (2-11) % Eosinophils % (Manual) 4.0 (2-4) % Basophils % (Manual) 2.0 H (0-1) % Myelocytes % 2.0 H (-0) % Neutrophils # (Manual) 2050 L (3902-4896) /uL Smudge Cells 2+ H RBC Morphology See below Anisocytosis 1+ H Sodium 136 L (137-145) mmol/L Potassium 3.8 (3.4-5.1) mmol/L Chloride 97 L (98-107) mmol/L Carbon Dioxide 31 (22-32) mmol/L BUN 16 (9-20) mg/dL Creatinine 0.76 (0.66-1.25) mg/dL Estimated GFR > 60 (>60) mL/min BUN/Creatinine Ratio 21.1 (6-22) Glucose 96 (80-110) mg/dL Calcium 8.5 (8.4-10.2) mg/dL Magnesium 1.8 (1.6-2.3) mg/dL Total Bilirubin 0.4 (0.2-1.3) mg/dL AST 35 (17-59) IU/L ALT 51 H (<50) IU/L Alkaline Phosphatase 128 H (38-126) U/L Total Creatine Kinase 48 L (55-170) U/L CK-MB (CK-2) TNP CK-MB (CK-2) Rel Index TNP Troponin I < 0.012 (0.01-0.034) ng/mL Total Protein 6.2 L (6.3-8.2) g/dL Albumin 3.5 (3.5-5.0) g/dL Globulin 2.7 (1.7-4.1) g/dL Albumin/Globulin Ratio 1.3 (1.0-2.8) Lipase 45 (23-300) U/L SARS-CoV-2 (PCR) Negative (Negative) Imaging Data Chest x-ray: Radiologist's Impression: XRay Report Signed Patient: Vivek Tian MR#: [id number] : 1940 Acct:[id number] Age/Sex: 82 / M Date of Service: 09/11/22 Loc: ED Accession Number: [id number] ?? Procedure: XR chest 1V Ordering Provider: Brenda Guzmán D.O. PROCEDURE:? XR CHEST 1V ? INDICATIONS:? chest pain ? TECHNIQUE:? One view of the chest was acquired.? ? COMPARISON:? [facility], , XR CHEST 1V, 08/22/2022, 0:26. ? FINDINGS:? ? Surgical changes and devices:? Right internal jugular Port-A-Cath appears stable in position. ? Lungs and pleura:? Lungs are clear.? Elevation of the right hemidiaphragm redemonstrated. ?No pleural effusions or pneumothorax.? ? Mediastinum:? Mediastinal contours appear normal.? Heart size is normal.? ? Bones and chest wall:? No suspicious bony lesions.? Overlying soft tissues appear unremarkable.? ? IMPRESSION:? ? 1.? No acute cardiopulmonary disease. ? ? ? Dictated by: Дмитрий Burnette M.D. on 09/11/2022 at 21:38 ? ECG Data Interpretation: Normal sinus rhythm rate 68 KS interval 140 QRS [address] changes no T- wave inversions similar to previous EKG MDM Narrative Medical decision making narrative: Patient has a known source of carbon monoxide. His carbon monoxide at level was in the 20s when he arrived. Immediately placed on non-rebreather it has come down significantly. He really does not have chest pain headache difficulty walking or shortness of breath. It does had vague symptoms of not feeling right. He remained on the non-rebreather for about 1-2 hours, CO moitor remains less than 5. No signs or symptoms of carbon monoxide poisoning no headache mild abdominal pain but he has had that previously. They are staying in a hotel tonight a fire department will got their house tomorrow. They called to have the fireplace evaluated tomorrow as well. Discharge Plan Departure Patient Disposition: Home Clinical Impression: Carbon monoxide poisoning Instructions: Carbon Monoxide Poisoning Activity Restrictions/Additional Instructions: *You have been diagnosed with carbon monoxide poison *What to do: At this time please have Fire Department evaluate house before your return also if you fireplace checked *Continue to take medications as directed *Follow up with your primary care provider in 2-3 days or call [phone] *Return to ER if you should have his increased confusion, shaking, loss of smell, numbness or tingling or any new, worsening or concerning symptoms Prescriptions: No Action omeprazole 10 MG capsule,delayed release(DR/EC) 20 mg PO DAILY Qty: 0 lisinopril 20 MG tablet 20 mg PO DAILY Qty: 0 atorvastatin [Lipitor] 10 MG tablet 20 mg PO DAILY Qty: 0 amlodipine [Norvasc] 5 MG tablet 10 mg PO DAILY Qty: 0 Referrals: Miscellaneous,Doctor, MD [Primary Care Provider] - Visit Report Forms: Patient Portal/API
[2022-09-11 19:58] LABS: Hematocrit 37.6 % (41-53); Mean Corpuscular HGB Conc 34.5 % (30-36); Mean Corpuscular Hemoglobin 32.2 PG (26-34); Mean Corpuscular Volume 93.4 fL (80-100); Platelet Count 188 X10^3/uL (150-400); Red Blood Cell Count 4.02 X10^6/uL (4.5-5.9); Red Cell Distribution Width 13.9 % (11.6-14.8); White Blood Cell Count 4.1 X10^3/uL (4.5-11.0)
[2022-09-11 20:01] LABS: COVID19 -Nasal RAPID Negative (Negative)
[2022-09-11 20:02] LABS: Alanine Aminotransferase 51 IU/L (<50); Albumin 3.5 g/dL (3.5-5.0); Albumin Globulin Ratio 1.3 (1.0-2.8); Alkaline Phosphatase 128 U/L (38-126); Aspartate Aminotransferase 35 IU/L (17-59); BUN Creatinine Ratio 21.1 (6-22); Bilirubin Total 0.4 mg/dL (0.2-1.3); Blood Urea Nitrogen 16 mg/dL (9-20); Calcium 8.5 mg/dL (8.4-10.2); Carbon Dioxide 31 mmol/L (22-32); Chloride 97 mmol/L (98-107); Creatine Kinase 48 U/L (55-170); Estimated Glomerular Filt Rate > 60 mL/min (>60); Globulin 2.7 g/dL (1.7-4.1); Glucose 96 mg/dL (80-110); HEMOLYSIS 32 (0-50); Lipase 45 U/L (23-300); Magnesium 1.8 mg/dL (1.6-2.3); Potassium 3.8 mmol/L (3.4-5.1); Sodium 136 mmol/L (137-145); Total Protein 6.2 g/dL (6.3-8.2)
[2022-09-11 20:07] LABS: Add Manual Diff / Slide Review YES
[2022-09-11 20:18] LABS: Troponin I < 0.012 ng/mL (0.01-0.034)
[2022-09-11 22:11] LABS: Neutrophils Absolute Manual 2050 /uL (3000-5900); Total Cells Counted 100
[2022-09-11 22:12] LABS: Smudge Cells 2+
[2022-09-11 22:13] LABS: Anisocytosis 1+
== END 2022-09-11 23:29 | disposition home or self-care (01) ==
PROVIDERS: Emergency Provider Emergency Medicine
DX: T58.91XA Toxic effect of carbon monoxide from unspecified source, accidental (unintentional), initial encounter (principal); Z20.822 Contact with and (suspected) exposure to COVID-19
CPT/HCPCS: 36415; 71045; 80053; 82550; 83690; 83735; 84484; 85007; 85025; 87635; 93005; 93010; 99284; C9803